=== PATIENT | male | born 1995 | race Caucasian/White ===

== ENCOUNTER 2017-02-10 12:29 | Emergency (ER) | payer BC ==
[~2017-02-10] VITALS: Ht 157.5 cm; Wt 64.7 kg
[2017-02-10] MEDS ORDERED: NAPROSYN500 MG PO (14:09)
[2017-02-10 14:25] VITALS: BP 127/77
== END 2017-02-10 14:25 | disposition home or self-care (01) ==
LOC: EME 12:29 → RME 12:29
DX: R51 Headache (principal)
CPT/HCPCS: 99281; 99284; J1885